=== PATIENT | female | born 1980 | race Caucasian/White ===

== ENCOUNTER 2021-04-13 15:20 | Outpatient (CLI) | payer BC | END 2021-04-13 15:21 | disposition home or self-care (01) | LOC: CSHMAMMO 15:20 | PROVIDERS: ATTEND Family Medicine | DX: Z12.31 Encounter for screening mammogram for malignant neoplasm of breast (principal) | CPT/HCPCS: 77063; 77067 ==

== ENCOUNTER 2022-04-27 07:54 | Day surgery (SDC) | payer BC ==
[2022-04-27] MEDS ORDERED: EPINEPHrine 1 MG/ML AMP ONE (11:09)
[2022-04-27] MEDS ORDERED: Bupivacaine PF 0.5% 30 ML VIAL ONE (11:09)
[2022-04-27] MEDS ORDERED: Rocuronium Bromide 10 MG/ML (10ML VIAL) ONE (11:47)
[2022-04-27] MEDS ORDERED: PROPOFOL 20 ML ONE (11:47)
[2022-04-27] MEDS ORDERED: Fentanyl 100 MCG/2 ML VIAL ONE ×2 (11:47→14:16)
[2022-04-27] MEDS ORDERED: Methylene Blue 50 MG/10 ML AMPUL ONE (11:51)
[2022-04-27] MEDS ORDERED: Midazolam HCl 2 mg/2 ml Vial ONE (11:52)
[2022-04-27] MEDS ORDERED: SUGAMMADEX SODIUM 200 MG/2 ML VIAL ONE (11:53)
[2022-04-27] MEDS ORDERED: Lidocaine 2% 6 ML SYR ONE (11:53)
[2022-04-27] MEDS ORDERED: Gentamicin 80 MG/100 ML BAG ONE (12:01)
[2022-04-27] MEDS ORDERED: Clindamycin/D5W 900 mg/50 ml Premix Bag ONE (12:01)
[2022-04-27] MEDS ORDERED: Meperidine HCl/PF 25 MG/ML VIAL ONE (14:42)
[2022-04-27 16:06] LABS: Hemoglobin 12.3 g/dL (12.0-15.5)
[2022-04-27] MEDS ORDERED: HYDROcodone/Acetaminophen 7.5/325 mg Tablet ONE (16:26)
[2022-04-27] MEDS ORDERED: Acetaminophen 325 MG TAB ONE (16:49)
== END 2022-04-27 17:40 | disposition home or self-care (01) ==
LOC: CSHSDC 07:54
PROVIDERS: ATTEND Obstetrics & Gynecology
PROC: 0UT94ZZ Resection of Uterus, Percutaneous Endoscopic Approach (ICD-10-PCS; principal; 2022-04-27)
PROC: 0U5B8ZZ Destruction of Endometrium, Via Natural or Artificial Opening Endoscopic (ICD-10-PCS; principal; 2022-04-27)
PROC: 0UB74ZZ Excision of Bilateral Fallopian Tubes, Percutaneous Endoscopic Approach (ICD-10-PCS; principal; 2022-04-27)
DX: N93.9 Abnormal uterine and vaginal bleeding, unspecified (principal); N80.03 Adenomyosis of the uterus; N73.6 Female pelvic peritoneal adhesions (postinfective); N94.6 Dysmenorrhea, unspecified; R10.2 Pelvic and perineal pain; Z79.82 Long term (current) use of aspirin
CPT/HCPCS: 36415; 85014; 85018; 88307; C1776; J0171; J1580; J2175; J2250; J2704; J3010; J3490; Q9968; S0020

== ENCOUNTER 2022-07-13 14:58 | Outpatient (CLI) | payer BC | END 2022-07-13 14:59 | disposition home or self-care (01) | LOC: CSHMAMMO 14:58 | PROVIDERS: ATTEND Family Medicine | DX: Z12.31 Encounter for screening mammogram for malignant neoplasm of breast (principal) | CPT/HCPCS: 77063; 77067 ==

== ENCOUNTER 2023-07-18 13:04 | Outpatient (CLI) | payer BC | END 2023-07-18 13:05 | disposition home or self-care (01) | LOC: CSHMAMMO 13:04 | PROVIDERS: ATTEND Family Medicine | DX: Z12.31 Encounter for screening mammogram for malignant neoplasm of breast (principal) | CPT/HCPCS: 77063; 77067 ==

== ENCOUNTER 2024-07-21 09:06 | Outpatient (CLI) | payer BC | END 2024-07-21 09:07 | disposition home or self-care (01) | LOC: CSHMAMMO 09:06 | PROVIDERS: ATTEND Family Medicine | DX: Z12.31 Encounter for screening mammogram for malignant neoplasm of breast (principal); N64.89 Other specified disorders of breast | CPT/HCPCS: 77063; 77067 ==